=== PATIENT | male | born 1995 | race Caucasian/White ===

== ENCOUNTER 2016-09-26 00:58 | Emergency (ER) | payer BC ==
[~2016-09-26] VITALS: Ht 170.2 cm; Wt 65.0 kg
[2016-09-26 01:01] VITALS: BP 146/86; PULSE 84; RESP 14; TEMP 98.4; O2SAT 99
--- NOTE | 2016-09-26 01:32 | PD ---
HPI Chief Complaint: Skin Problem Time Seen by Provider: 01:25 Travel History International Travel<30 days: No Contact w/Intl Traveler<30days: No Traveled to known affect area: No History of Present Illness HPI Patient comes in for possible shingles outbreak that began 2 days ago. Patient reports burning pain over the rash that waxes and wanes. Patient denies doing anything for this. Denies anything making it better. States feels like it is getting progressively worse. Denies any fevers or previous outbreaks like this. Denies being around anyone else with similar. Patient also requesting a "general blood work"and he has not seen a primary care provider in a while he wants to make sure "everything is okay". PFSH Past Medical History Medical History: Denies Significant Hx Diminished Hearing: No Immunizations Current: Yes Past Surgical History Ear Surgery: Yes (tubes in ears) Social History Alcohol Use: Yes (4 beers a week) Tobacco Use: Yes (1/2 ppd) Substance Use: No Allergies-Medications (Allergen,Severity, Reaction): Coded Allergies: No Known Allergies (Unverified , 09/26/16) Reported Meds & Prescriptions Reported Meds & Active Scripts Active Acyclovir 800 Mg Tab 800 Mg PO 5 TIMES A DAY 10 Days Review of Systems Except as stated in HPI: all other systems reviewed are Neg Physical Exam Narrative GENERAL: Well-developed, well nourished, in no acute distress, and non-ill appearing. SKIN: She is appearing rash left thoracic cavity following dermatomes proximate T8 and T9. Does not cross the midline. There is no signs of a secondary infection. HEAD: Atraumatic. Normocephalic. EYES: Pupils equal and round. EOMI. No scleral icterus. No injection or drainage. ENT: No nasal bleeding or discharge. Mucous membranes pink and moist. NECK: Trachea midline. Supple. No nuclear rigidity. RESPIRATORY: No accessory muscle use. No respiratory distress. MUSCULOSKELETAL: No obvious deformities. No clubbing. No cyanosis. No edema. Full range of motion. NEUROLOGICAL: Awake and alert. No obvious cranial nerve deficits. Motor grossly within normal limits. Normal speech. PSYCHIATRIC: Appropriate mood and affect; insight and judgment normal. Data Data Last Documented VS Vital Signs Date Time Temp Pulse Resp B/P Pulse Ox O2 Delivery O2 Flow Rate FiO2 09/26/16 01:01 98.4 84 14 146/86 99 Room Air [facility] Medical Decision Making Medical Screen Exam Complete: Yes Emergency Medical Condition: Yes Differential Diagnosis Shingles, abscess, cellulitis, folliculitis, scabies, other Narrative Course Patient requesting routine checkup while he is here including labs. I explained to the patient this is something he needs to establish and follow-up with primary care provider to have completed. Patient verbalizes understanding of this. Patient was given outside resources where he can establish and follow up with a primary care doctor. Patient in no obvious distress upon re-evaluation. Patient was asked if they wanted to speak to my attending, which the patient did not wish to do at this time. Any questions/concerns in reference to patient diagnosis/condition discussed and clarified prior to patient's discharge. Reinforced sheer importance of close follow up with patient's primary physician or primary care clinic. Instructed patient to return to ED immediately, if symptoms return/ worsen. Pt showed understanding of above instructions. Further instructions and recommendations were detailed in discharge paperwork. Pt ambulated without difficulty out of ED at discharge. Diagnosis Primary Impression: Shingles Qualified Code: B02.9 - Herpes zoster without complication Referrals: [facility] Patient Instructions: General Instructions, Shingles (ED) Additional Instructions: Establish and follow-up with primary care physician next week for reevaluation and routine checkup. Take all medication as prescribed. Use [id number] calamine lotion, Tylenol and/or ibuprofen as needed for pain. Follow instructions on the packaging. Return to the emergency department if symptoms get worse. Med/Other Pt SpecificInfo: Prescription(s) given Scripts Acyclovir 800 Mg Pku208 Mg PO 5 TIMES A DAY 10 Days Ref 0 Prov:Josselyn Doyle MD 09/26/16 Disposition: 01 DISCHARGE HOME Condition: Stable Shane Moeller Sep 26, 2016 01:32
[2016-09-26] MEDS ORDERED: ACYC800T PO (01:33)
== END 2016-09-26 02:07 | disposition home or self-care (01) ==
LOC: NEPK 00:58
DX: B02.9 Zoster without complications (principal)
CPT/HCPCS: 99283